=== PATIENT | female | born 1960 | race Caucasian/White ===

== ENCOUNTER 2021-12-01 13:04 | Inpatient (IN) | payer BC ==
[~2021-12-01] VITALS: Ht 157.5 cm; Wt 89.4 kg
[2021-12-01 13:07] VITALS: BP_SYST 149
--- NOTE | 2021-12-01 13:19 | NUR ---
PT COMES TO ER WITH C/O DIFFUSE ABDOMINAL PAIN X 2 WEEKS WORSENING IN THE LAST TWO DAYS. NO BM IN 3 DAYS. +NAUSEA/NO VOMITTING. +DIARRHEA X 1 DAY. DENIES ANY FEVERS. ABD ROUND/DISTENDED,SOFT, SLIGHTLY TENDER WITH PALPATION.
--- NOTE | 2021-12-01 13:37 | NUR ---
DR MOLINA IN ROOM FOR EXAM
[2021-12-01 13:44] LABS: BILIRUBIN,URINE 1+ (NEGATIVE); BLOOD, URINE NEGATIVE (NEGATIVE); CLARITY/URINE CLEAR (CLEAR); COLOR,URINE YELLOW (YELLOW); GLUCOSE,URINE NEGATIVE (NEGATIVE); KETONES,URINE 3+ (NEGATIVE); LEUKOCYTE ESTERASE ,URINE NEGATIVE (NEGATIVE); NITRITE, URINE NEGATIVE (NEGATIVE); PROTEIN URINE TRACE (NEGATIVE); UROBILINOGEN,URINE 0.2 (0.2-1.0)
[2021-12-01] MEDS ORDERED: NACL 0.9% 1,000 ML IV ONE (13:45)
[2021-12-01] MEDS ORDERED: MORPHINE 4 MG INJ. 4 MG/ML VIAL IVP ONE (13:45)
[2021-12-01] MEDS ORDERED: KETOROLAC TROMETHAMINE 30 MG VIAL IVP ONE (13:45)
[2021-12-01 13:46] LABS: BASOPHILS % (AUTO) 0.5 % (0.0-2.0); EOSINOPHILS % (AUTO) 0.4 % (0.0-4.0); HEMATOCRIT 38.8 % (36-48); LYMPHOCYTES # (AUTO) 1.2 K/uL (1.0-5.5); LYMPHOCYTES % (AUTO) 13.3 % (20.5-51.5); MEAN CORPUSCULAR HEMOGLOBIN 28 pg (27-31); MEAN CORPUSCULAR HGB CONC 33 % (32-36); MEAN CORPUSCULAR VOLUME 84 fL (79.0-98.0); MONOCYTES # (AUTO) 0.5 K/uL (0.0-1.0); MONOCYTES % (AUTO) 5.6 % (1.7-9.3); NEUTROPHILS # (AUTO) 7.4 K/uL (1.8-7.7); NEUTROPHILS % (AUTO) 80.2 % (40.0-70.0); PLATELET COUNT (AUTO) 403 K/uL (130-430); RED BLOOD CELL COUNT(AUTO) 4.65 MIL/uL (4.2-6.2); RED CELL DISTRIBUTION WIDTH 13.5 % (9.0-15.0); WHITE BLOOD COUNT (AUTO) 9.2 K/uL (4.8-10.8)
[2021-12-01 13:55] LABS: CREATININE 0.79 mg/dL (0.55-1.30)
[2021-12-01 14:01] LABS: ALBUMIN 2.8 g/dL (3.4-4.8); TOTAL BILIRUBIN 0.3 mg/dL (0.0-1.0)
--- NOTE | 2021-12-01 14:41 | NUR ---
Pt resting in bed at this time, VSS.
--- NOTE | 2021-12-01 16:36 | NUR ---
DR HILL AT BEDSIDE SPEAKING WITH PT.
--- NOTE | 2021-12-01 16:43 | NUR ---
COVID TEST DONE AND SENT TO LAB
--- NOTE | 2021-12-01 18:51 | NUR ---
Admit bed requested Patient will be admitted to care of . Admitted to M/S unit. Diagnosis ASCITES Inpatient (Yes or No) YES Observation (Yes or No) NO Orientation concerns or request close to nursing station (Yes or No) NO Covid Status NEG On vent or bipap NO Isolation requirements NO Needs a sitter NO From Home (Yes or if No enter name of facility) YES Requires Dialysis (Yes or No) NO Med Rec Completed (Yes of No) YES
[2021-12-01] MEDS ORDERED: PARO-63 PO (18:58)
[2021-12-01] MEDS ORDERED: GLIP10TA11 PO (18:58)
[2021-12-01] MEDS ORDERED: ATEN-41 PO (18:58)
[2021-12-01] MEDS ORDERED: LISI20TA30 PO (18:58)
[2021-12-01] MEDS ORDERED: METF-518 PO (18:58)
[2021-12-01] MEDS ORDERED: NOR10 PO (18:58)
[2021-12-01] MEDS ORDERED: LIP20 PO (18:58)
--- NOTE | 2021-12-01 18:58 | NUR ---
Medication reconciliation completed with information provided by PATIENT. Any prior medication reconciliation on file was reviewed and corrected.
--- NOTE | 2021-12-01 19:30 | NUR ---
Received report, pt is AAOX4, skin w/d to touch w/ c/o difuse abd pain, and back pain which is a chronic Hx. Pt is admitted, Pending a room.
--- NOTE | 2021-12-01 20:00 | NUR ---
Pt admitted to room assignment 110A.
--- NOTE | 2021-12-01 20:37 | NUR ---
Patient will be admitted to care of Dr Roy. Admitted to Med Surg unit. Will go to room Room 110A. Belongings list completed. Complete and up to date summary report printed. SBAR report given to Zuleika FLORES via telephone with opportunity for questions.
--- NOTE | 2021-12-01 21:02 | NUR ---
Admission Note Received patient from ER with diagnosis of ascites. Initial Plan of Care discussed-patient verbalized understanding. Oriented to room, call light, pain management and safety.
[2021-12-01 21:08] VITALS: BP_SYST 143
[2021-12-01] MEDS: MORPHINE 4 MG INJ. 4 MG/ML VIAL IVP PRN (21:50)
[2021-12-02] VITALS: BP_SYST 148
--- NOTE | 2021-12-02 01:27 | NUR ---
Consultation Paged Reason for Consultation: Ascites Was consult called: Y Person who was notified: Charissa Consulting Physician: Dr. Davis (Dr. Key is refrigeration repair supervisor) Ordering Physician: Marci Malcolm
[2021-12-02] MEDS: MORPHINE 4 MG INJ. 4 MG/ML VIAL IVP PRN ×4 (03:11→18:41)
--- NOTE | 2021-12-02 06:18 | NUR ---
CLOSING NOTE PATIENT IN BED, AWAKE, NO S/S OF ACUTE DISTRESS. BREATHING EVEN AND UNLABORED. DENIES PAIN AT THIS TIME. IV SITE IS PATENT, NO SIGNS OF INFILTRATION OR INFECTION NOTED. ALL NEEDS MET THROUGHOUT SHIFT. FALL, SAFETY PRECAUTIONS MAINTAINED THROUGHOUT SHIFT. WILL CONTINUE TO MONITOR UNTIL PATIENT CARE IS ENDORSED TO ONCOMING DAYSHIFT NURSE.
[2021-12-02 06:50] LABS: BASOPHILS # (AUTO) 0.2 K/uL (0.0-0.2); EOSINOPHILS # (AUTO) 0.1 K/uL (0.0-0.4); EOSINOPHILS % (AUTO) 0.8 % (0.0-4.0); HEMATOCRIT 35.4 % (36-48); HEMOGLOBIN 12.2 g/dL (12.0-16.0); LYMPHOCYTES % (AUTO) 13.1 % (20.5-51.5); MEAN CORPUSCULAR HEMOGLOBIN 29 pg (27-31); MEAN CORPUSCULAR HGB CONC 35 % (32-36); MEAN CORPUSCULAR VOLUME 83 fL (79.0-98.0); MONOCYTES # (AUTO) 0.4 K/uL (0.0-1.0); MONOCYTES % (AUTO) 5.3 % (1.7-9.3); NEUTROPHILS # (AUTO) 6.2 K/uL (1.8-7.7); NEUTROPHILS % (AUTO) 77.8 % (40.0-70.0); PLATELET COUNT (AUTO) 372 K/uL (130-430); RED BLOOD CELL COUNT(AUTO) 4.29 MIL/uL (4.2-6.2); RED CELL DISTRIBUTION WIDTH 13.6 % (9.0-15.0); WHITE BLOOD COUNT (AUTO) 7.9 K/uL (4.8-10.8)
[2021-12-02 07:27] LABS: CALCIUM 8.4 mg/dL (8.4-11.0); CREATININE 0.63 mg/dL (0.55-1.30); POTASSIUM 4.2 mmol/L (3.5-5.1)
--- NOTE | 2021-12-02 07:30 | NUR ---
Report received from shift commander RN for continuity of care. Patient stable condition.
[2021-12-02 07:45] LABS: ALBUMIN 2.5 g/dL (3.4-4.8); TOTAL BILIRUBIN 0.3 mg/dL (0.0-1.0)
[2021-12-02 08:28] VITALS: BP_SYST 136
--- NOTE | 2021-12-02 10:56 | NUR ---
MD ALBARO AWAD CAKKED AT SPOKE WITH DR.RIZVI MAR ABID MIXER AND SCALER.
[2021-12-02] MEDS ORDERED: ATENOLOL 25 MG TABLET(TENORMIN) PO ONE (11:00)
[2021-12-02] MEDS ORDERED: ATORVASTATIN 20 MG TABLET PO ONE (11:00)
[2021-12-02] MEDS ORDERED: lisinopriL 20 MG TABLET PO ONE (11:00)
[2021-12-02] MEDS ORDERED: amLODIPine BESYLATE 10 MG TABLET PO ONE (11:00)
[2021-12-02 12:00] VITALS: BP_SYST 140
[2021-12-02 13:22] LABS: INR 0.9 (0.8-1.2); PROTHROMBIN TIME 9.9 SECS (9.5-12.5)
[2021-12-02] MEDS ORDERED: LIDOCAINE 1%, 20 ML MDV 20 ML ONE (13:42)
--- NOTE | 2021-12-02 15:02 | NUR ---
CONSULTATION PAGED REASON FOR CONSULTATION:ASCITES WAS CONSULT CALED?Y PERSON WHO WAS NOTIFIED:OPAL CONSULTING PHYSICIAN:TONY STAFFORD ANKUSH COMPUTER ASSISTANT SPECIALTY:GI COMPUTER ASSISTANT PHONE [phone]: REQUESTING PHYSICIAN:VIPIN HOOD
[2021-12-02 16:00] VITALS: BP_SYST 128
--- NOTE | 2021-12-02 16:45 | NUR ---
CONSULTATION PAGED/CALLED Reason for Consultation: []ascites Person Who was Notified: []left message Consulting Physician: [] Dr. Crane Maintenance Mechanic Telephone Specialty: []GI Ordering Physician: []Dr. Pruett
[2021-12-02 17:54] LABS: BF APPEARANCE UNSPUN SLIGHTLY HAZY (CLEAR); BODY FLUID COLOR YELLOW (LT YELLOW); BODY FLUID TOTAL VOLUME 1100 mL; LYMPHOCYTES, BODY FLUID 45 %; MONOCYTES,BODY FLUID 1 %; NEUTROPHIL, BODY FLUID 54 %; RBC, BODY FLUID 2013 /uL; SOURCE/TYPE ,BODY FLUID PARACENTESIS; WBC, BODY FLUID 662 /uL
[2021-12-02] MEDS ORDERED: glipiZIDE XL 5 MG TAB ( GLUCOTROL XL) PO ONE (18:33)
[2021-12-02] MEDS ORDERED: MORPHINE 4 MG INJ. 4 MG/ML VIAL ONE (18:41)
--- NOTE | 2021-12-02 19:56 | NUR ---
Report given to retail shift leader RN for continuity of care. Patient stable throughout the shift. No distress noted.
[2021-12-02 20:00] VITALS: BP_SYST 133
[2021-12-02 21:24] LABS: BODY FLUID GLUCOSE 191 mg/dL; BODY FLUID TOTAL PROTEIN 4.8 g/dL
[2021-12-03] VITALS: BP_SYST 138
[2021-12-03] MEDS: MORPHINE 4 MG INJ. 4 MG/ML VIAL IVP PRN ×5 (04:38→23:03)
[2021-12-03 08:00] VITALS: BP_SYST 127
--- NOTE | 2021-12-03 08:30 | NUR ---
Report received from day shift RN for continuity of care. Patient stable.
[2021-12-03] MEDS ORDERED: ATENOLOL 25 MG TABLET(TENORMIN) PO SCH (09:00)
[2021-12-03] MEDS ORDERED: ATORVASTATIN 20 MG TABLET PO SCH (09:00)
[2021-12-03] MEDS ORDERED: amLODIPine BESYLATE 10 MG TABLET PO SCH (09:00)
[2021-12-03] MEDS ORDERED: lisinopriL 20 MG TABLET PO SCH (09:00)
[2021-12-03] MEDS: ATORVASTATIN 20 MG TABLET PO SCH (09:40)
[2021-12-03] MEDS: amLODIPine BESYLATE 10 MG TABLET PO SCH (09:40)
[2021-12-03] MEDS: lisinopriL 20 MG TABLET PO SCH (09:41)
[2021-12-03] MEDS: ATENOLOL 25 MG TABLET(TENORMIN) PO SCH (09:41)
--- NOTE | 2021-12-03 10:06 | NUR ---
Patient explained that her abdomen feels more distended. Patient's abdomen appears rounder and feels firm. Patient had paracentesis yesterday. Patient experiencing labored breathing. Oxygen with nasal cannula set up at bedside. O2 saturation with pulse oximeter 97%. Patient says she feels "ok" at the moment. Dr. Roy made aware of situation.
[2021-12-03] MEDS ORDERED: DIATR MEGLU/DIATRIZ SOD 30 ML SOLUTION PO ONE (10:12)
[2021-12-03 12:00] VITALS: BP_SYST 118
[2021-12-03] MEDS ORDERED: iohexoL 350 mgI/mL, 100 ML INFUS..BTL IV ONE (12:03)
--- NOTE | 2021-12-03 12:14 | NUR ---
Dr. Key went to see patient and is aware of abdominal distention. New orders for CT abdomen with contrast. Education provided. Patient agreed to sign consent form.
--- NOTE | 2021-12-03 12:35 | NUR ---
Patient blood sugar checked. Patient refusing diabetic medication at this time and is ok with taking at later time. Dr. Roy made aware.
[2021-12-03] MEDS: metFORMIN HCL 500 MG TABLET PO SCH (14:18)
--- NOTE | 2021-12-03 14:43 | NUR ---
Spoke with Dr. Roy regarding patient saying her abdomen is still retaining fluid. Dr. Roy to talk with patient.
[2021-12-03 16:00] VITALS: BP_SYST 136
[2021-12-03] MEDS ORDERED: FURO-150 PO (16:25)
--- NOTE | 2021-12-03 18:15 | NUR ---
Call placed to [facility] for US paracentesis. Radiologist and Dr. Roy made aware.
--- NOTE | 2021-12-03 19:30 | NUR ---
Report given to sack cleaning hand RN for continuity of care. Patient in stable condition. No distress noted. Patient agreed to paracentesis in morning.
--- NOTE | 2021-12-03 20:08 | NUR ---
RECEIVED PT SITTING AT THE EDGE OF BED, AAOX4, C/O ABD DISCOMFORT. O2 2L VIA NC O2 SAT 99%. IV SITE TO LT AC SITE CDI. ABD DISTENDED AND FIRM. NO SKIN INJURY NOTED. FAMILY MEMBER AT BEDSIDE.
[2021-12-03 20:10] VITALS: BP_SYST 127
[2021-12-04 00:33] VITALS: BP_SYST 114
[2021-12-04] MEDS: MORPHINE 4 MG INJ. 4 MG/ML VIAL IVP PRN ×3 (06:27→19:09)
[2021-12-04 07:19] VITALS: BP_SYST 121
[2021-12-04 07:31] LABS: ALBUMIN 2.1 g/dL (3.4-4.8); CALCIUM 8.4 mg/dL (8.4-11.0); CREATININE 0.67 mg/dL (0.55-1.30); POTASSIUM 4.1 mmol/L (3.5-5.1); TOTAL BILIRUBIN 0.3 mg/dL (0.0-1.0)
[2021-12-04] MEDS ORDERED: LIDOCAINE 1%, 20 ML MDV 20 ML ONE (07:35)
[2021-12-04 07:49] LABS: BASOPHILS % (AUTO) 0.4 % (0.0-2.0); EOSINOPHILS # (AUTO) 0.1 K/uL (0.0-0.4); HEMATOCRIT 34.3 % (36-48); HEMOGLOBIN 11.7 g/dL (12.0-16.0); LYMPHOCYTES # (AUTO) 0.9 K/uL (1.0-5.5); LYMPHOCYTES % (AUTO) 12.8 % (20.5-51.5); MEAN CORPUSCULAR HEMOGLOBIN 28 pg (27-31); MEAN CORPUSCULAR HGB CONC 34 % (32-36); MEAN CORPUSCULAR VOLUME 83 fL (79.0-98.0); MONOCYTES # (AUTO) 0.7 K/uL (0.0-1.0); MONOCYTES % (AUTO) 10.3 % (1.7-9.3); NEUTROPHILS # (AUTO) 5.4 K/uL (1.8-7.7); NEUTROPHILS % (AUTO) 75.5 % (40.0-70.0); PLATELET COUNT (AUTO) 401 K/uL (130-430); RED BLOOD CELL COUNT(AUTO) 4.13 MIL/uL (4.2-6.2); RED CELL DISTRIBUTION WIDTH 12.9 % (9.0-15.0); WHITE BLOOD COUNT (AUTO) 7.2 K/uL (4.8-10.8)
[2021-12-04] MEDS: lisinopriL 20 MG TABLET PO SCH (10:11)
[2021-12-04] MEDS: metFORMIN HCL 500 MG TABLET PO SCH ×2 (10:12→17:56)
[2021-12-04] MEDS: amLODIPine BESYLATE 10 MG TABLET PO SCH (10:12)
[2021-12-04] MEDS: ATORVASTATIN 20 MG TABLET PO SCH (10:12)
[2021-12-04] MEDS: ATENOLOL 25 MG TABLET(TENORMIN) PO SCH (10:15)
[2021-12-04 11:22] VITALS: BP_SYST 125
--- NOTE | 2021-12-04 12:04 | NUR ---
CONSULTATION PAGED REASON FOR CONSULTATION:R/O CHF, ECHO WAS CONSULT CALLED?Y -PERSON WHO WAS NOTIFIED:EDWIN CONSULTING PHYSICIAN:ASHLEY RUIZ SHEET METAL WORKER MAINTENANCE SPECIALTY:CARDIO SHEET METAL WORKER MAINTENANCE PHONE NUMBER:[phone] REQUESTING PHYSICIAN:VIPIN CARCAMO
[2021-12-04] MEDS ORDERED: HYDR-3917 PO ×2 (13:37→14:33)
--- NOTE | 2021-12-04 16:21 | NUR ---
Discharge appointments and vendors arranged by [facility] [employer]house Log[employer] Coordinator Mariza Outlore [phone] Dr. [facility] will call with date and time Dr. Key Auto Machinist [facility] will call with date and time [phone] auth# [id number] [facility] for medication reconciliation Agency will call and schedule visit. Please call Patient Support Center [phone] for worsening symptoms or trouble getting your medicine. For care needs when provider office is closed, contact Alisha [facility] at [phone] or Jo-Ann [facility] [phone].
[2021-12-04 16:24] VITALS: BP_SYST 122
[2021-12-04 20:00] VITALS: BP_SYST 113
[2021-12-05 06:39] VITALS: BP_SYST 119
[2021-12-05] MEDS: MORPHINE 4 MG INJ. 4 MG/ML VIAL IVP PRN ×2 (06:50→14:33)
[2021-12-05 08:28] LABS: CALCIUM 8.6 mg/dL (8.4-11.0); CREATININE 0.71 mg/dL (0.55-1.30); THYROID STIMULATING HORMONE 0.71 uIu/mL (0.36-3.74)
[2021-12-05] MEDS: metFORMIN HCL 500 MG TABLET PO SCH ×2 (09:22→16:49)
[2021-12-05] MEDS: ATORVASTATIN 20 MG TABLET PO SCH (09:23)
[2021-12-05] MEDS: amLODIPine BESYLATE 10 MG TABLET PO SCH (09:24)
[2021-12-05] MEDS: lisinopriL 20 MG TABLET PO SCH (09:25)
[2021-12-05] MEDS: ATENOLOL 25 MG TABLET(TENORMIN) PO SCH (09:25)
[2021-12-05] MEDS ORDERED: HYDR-3917 PO (10:52)
[2021-12-05 11:29] VITALS: BP_SYST 122
[2021-12-05 13:58] VITALS: BP_SYST 106
[2021-12-05 15:48] VITALS: BP_SYST 102
== END 2021-12-05 15:00 | disposition home or self-care (01) | DRG 392 ==
LOC: SED 13:04 → SMU 18:47 → UNDODISIN 12-02 16:10
PROVIDERS: ADMIT Internal Medicine; ATTEND Internal Medicine
PROC: 0W9G3ZZ Drainage of Peritoneal Cavity, Percutaneous Approach (ICD-10-PCS; principal; 2021-12-02)
PROC: 0W9G3ZZ Drainage of Peritoneal Cavity, Percutaneous Approach (ICD-10-PCS; 2021-12-03)
DX: R10.9 Unspecified abdominal pain (principal); R18.8 Other ascites; E11.9 Type 2 diabetes mellitus without complications; I10 Essential (primary) hypertension; Z20.822 Contact with and (suspected) exposure to COVID-19; E78.5 Hyperlipidemia, unspecified; Z79.899 Other long term (current) drug therapy; Z98.84 Bariatric surgery status; Z79.84 Long term (current) use of oral hypoglycemic drugs
CPT/HCPCS: 36415; 49083; 76376; 80048; 80053; 80061; 81003; 82042; 82947; 82962; 83690; 83880; 84157; 84443; 85025; 85610-TC; 85651-TC; 86300; 86301; 86304; 87070-TC; 88108; 89051-TC; 89060-TC; 93005; 93306; 96361; 96374; 96375; 99285; J1885; J2001; J2270; Q9964; Q9967

== ENCOUNTER 2021-12-15 17:47 | Inpatient (IN) | payer BC, OTHER ==
[~2021-12-15] VITALS: Ht 157.5 cm; Wt 82.6 kg
[2021-12-15 17:47] VITALS: BP_SYST 130
[~2021-12-15 17:47] MED LIST: ATEN-41 PO; FURO-150 PO; GLIP10TA11 PO; LIP20 PO; LISI20TA30 PO; METF-518 PO; NOR10 PO; PARO-63 PO
[2021-12-15 19:51] LABS: BASOPHILS # (AUTO) 0.1 K/uL (0.0-0.2); BASOPHILS % (AUTO) 1.1 % (0.0-2.0); EOSINOPHILS % (AUTO) 0.4 % (0.0-4.0); HEMATOCRIT 33.9 % (36-48); LYMPHOCYTES # (AUTO) 0.9 K/uL (1.0-5.5); LYMPHOCYTES % (AUTO) 9.8 % (20.5-51.5); MEAN CORPUSCULAR VOLUME 82 fL (79.0-98.0); MONOCYTES # (AUTO) 0.6 K/uL (0.0-1.0); MONOCYTES % (AUTO) 5.8 % (1.7-9.3); NEUTROPHILS # (AUTO) 7.9 K/uL (1.8-7.7); PLATELET COUNT (AUTO) 667 K/uL (130-430); RED BLOOD CELL COUNT(AUTO) 4.13 MIL/uL (4.2-6.2); RED CELL DISTRIBUTION WIDTH 13.8 % (9.0-15.0); WHITE BLOOD COUNT (AUTO) 9.5 K/uL (4.8-10.8)
[2021-12-15 20:08] LABS: ANION GAP 12 (5-15); CALCIUM 9.3 mg/dL (8.4-11.0); CHLORIDE 102 mmol/L (98-107); CREATININE 0.84 mg/dL (0.55-1.30); GLUCOSE 208 mg/dL (70-99); POTASSIUM 4.1 mmol/L (3.5-5.1); SODIUM SERUM 140 mmol/L (136-145); UREA NITROGEN, BLOOD 15 mg/dL (8-21)
[2021-12-15 20:15] LABS: NEUTROPHILS % (AUTO) 82.9 % (40.0-70.0)
[2021-12-15 20:16] LABS: GFR AFRICAN AMERICAN 88 mL/min (>90)
[2021-12-15 20:21] LABS: PROTHROMBIN TIME 10.3 SECS (9.5-12.5)
[2021-12-15 20:23] LABS: ALANINE AMINOTRANSFERASE 10 U/L (12-78); ALBUMIN 1.7 g/dL (3.4-4.8); AMYLASE 13 U/L (0-100); ASPARTATE AMINOTRANSFERASE 15 U/L (10-37); LACTATE DEHYDROGENASE 124 U/L (81-234); LIPASE 73 U/L (73-393); TOTAL BILIRUBIN 0.4 mg/dL (0.0-1.0)
[2021-12-15 21:08] LABS: C-REACTIVE PROTEIN QUANT 31.7 mg/dL (0-0.5)
[2021-12-15 21:22] LABS: BILIRUBIN,URINE 2+ (NEGATIVE); CLARITY/URINE CLOUDY (CLEAR); COLOR,URINE YELLOW (YELLOW); GLUCOSE,URINE NEGATIVE (NEGATIVE); KETONES,URINE 3+ (NEGATIVE); LEUKOCYTE ESTERASE ,URINE 2+ (NEGATIVE); NITRITE, URINE POSITIVE (NEGATIVE); PH,URINE 5.5 (5.0-8.0); PROTEIN URINE 1+ (NEGATIVE)
[2021-12-15 21:36] LABS: BLOOD, URINE TRACE (NEGATIVE)
[2021-12-15 21:53] LABS: WBC,URINE 80-100 /HPF (0-3)
[2021-12-15 21:54] LABS: BACTERIA,URINE MANY /HPF (None Seen); MUCUS,URINE None Seen /LPF (None Seen)
[2021-12-16 00:15] VITALS: BP_SYST 144
[2021-12-16] MEDS: HYDROcodone/ACETAMIN 5-325 MG TAB (NORCO/ VICODIN) PO PRN ×3 (01:50→21:11)
[2021-12-16 09:35] VITALS: BP_SYST 151
[2021-12-16] MEDS ORDERED: METF-381 PO (12:51)
[2021-12-16 13:14] VITALS: BP_SYST 124
[2021-12-16 16:36] VITALS: BP_SYST 131
[2021-12-16 17:30] LABS: APPEARANCE,SPUN,BODY FLUID CLEAR (CLEAR); BF APPEARANCE UNSPUN HAZY (CLEAR); BODY FLUID COLOR YELLOW (LT YELLOW); BODY FLUID TOTAL VOLUME 2550 mL; NEUTROPHIL, BODY FLUID 61 %; RBC, BODY FLUID 1515 /uL; SOURCE/TYPE ,BODY FLUID PERITONEAL; WBC, BODY FLUID 491 /uL
[2021-12-16 17:31] LABS: LYMPHOCYTES, BODY FLUID 39 %
[2021-12-16 20:00] VITALS: BP_SYST 128
[2021-12-16 20:49] LABS: BODY FLUID GLUCOSE 198 mg/dL
[2021-12-16 20:50] LABS: BODY FLUID TOTAL PROTEIN 4.2 g/dL
[2021-12-17] VITALS: BP_SYST 137
[2021-12-17 04:00] VITALS: BP_SYST 124
[2021-12-17] MEDS: HYDROcodone/ACETAMIN 5-325 MG TAB (NORCO/ VICODIN) PO PRN ×3 (08:50→20:24)
[2021-12-17 12:00] VITALS: BP_SYST 128
[2021-12-17] MEDS ORDERED: METOCLOPRAMIDE HCL 10 MG/2 ML VIAL IVP PRN (15:45)
[2021-12-17] MEDS ORDERED: fentaNYL CITRATE/PF 100 MCG/2 ML AMP IVP PRN ×2 (15:45)
[2021-12-17] MEDS ORDERED: ONDANSETRON HCL 4 MG/2 ML VIAL IVP PRN (15:45)
[2021-12-17 16:24] VITALS: BP_SYST 126
[2021-12-17] MEDS: ATENOLOL 25 MG TABLET(TENORMIN) PO SCH (21:33)
[2021-12-17 22:00] VITALS: BP_SYST 129
[2021-12-18] VITALS: BP_SYST 127
[2021-12-18 04:00] VITALS: BP_SYST 118
[2021-12-18] MEDS: HYDROcodone/ACETAMIN 5-325 MG TAB (NORCO/ VICODIN) PO PRN ×2 (06:34→16:02)
[2021-12-18 08:00] VITALS: BP_SYST 120
[2021-12-18] MEDS ORDERED: lisinopriL 20 MG TABLET PO SCH (09:00)
[2021-12-18] MEDS ORDERED: amLODIPine BESYLATE 10 MG TABLET PO SCH (09:00)
[2021-12-18] MEDS: ATENOLOL 25 MG TABLET(TENORMIN) PO SCH (09:48)
[2021-12-18 12:00] VITALS: BP_SYST 121
[2021-12-18 15:33] VITALS: BP_SYST 134
[2021-12-18 16:00] VITALS: BP_SYST 119
== END 2021-12-18 17:10 | disposition home or self-care (01) | DRG 357 ==
LOC: SED 17:47 → SMU 20:36 → OBSVTOIN 12-17 23:36
PROVIDERS: ADMIT Internal Medicine; ATTEND Internal Medicine
PROC: 0W9G4ZZ Drainage of Peritoneal Cavity, Percutaneous Endoscopic Approach (ICD-10-PCS; principal; 2021-12-16)
PROC: 0WBH4ZX Excision of Retroperitoneum, Percutaneous Endoscopic Approach, Diagnostic (ICD-10-PCS; 2021-12-17)
PROC: 0DBW4ZX Excision of Peritoneum, Percutaneous Endoscopic Approach, Diagnostic (ICD-10-PCS; 2021-12-17)
DX: C78.6 Secondary malignant neoplasm of retroperitoneum and peritoneum (principal); N39.0 Urinary tract infection, site not specified; R18.0 Malignant ascites; Z20.822 Contact with and (suspected) exposure to COVID-19; E11.9 Type 2 diabetes mellitus without complications; I10 Essential (primary) hypertension; N83.9 Noninflammatory disorder of ovary, fallopian tube and broad ligament, unspecified
CPT/HCPCS: 36415; 49083; 71045; 76376; 76856-TC; 80053; 81000; 82150; 82947; 83605; 83615; 83690; 84157; 84484; 85025; 85610-TC; 85730-TC; 86140; 86304; 86886; 86900; 86901; 87070; 87081; 87086; 87101; 87116; 87205-TC; 88305; 89051-TC; 89060-TC; 93005; 99285; C1727; G0378